=== PATIENT | male | born 1950 | race Caucasian/White ===

== ENCOUNTER 2022-12-03 06:23 | Outpatient (REF) | payer SELFPAY ==
[2022-12-03 07:05] LABS: INTERNATIONAL NORM RATIO 2.2 (0.9-1.1); Prothrombin Time 26.6 SEC (10.0-13.1)
== END 2022-12-03 06:24 | disposition home or self-care (01) ==
LOC: HO.MMNH1L 06:23
PROVIDERS: Visit Provider Family Medicine
DX: N18.6 End stage renal disease (principal); E11.9 Type 2 diabetes mellitus without complications
CPT/HCPCS: 36415; 85610

== ENCOUNTER 2023-01-21 06:07 | Outpatient (REF) | payer MEDICARE, SELFPAY | END 2023-01-21 06:08 | disposition home or self-care (01) | LOC: HO.MMNH1L 06:07 | PROVIDERS: Visit Provider Family Medicine | DX: Z13.89 Encounter for screening for other disorder (principal) ==

== ENCOUNTER 2023-02-25 06:18 | Outpatient (REF) | payer MEDICARE, MEDICAID, SELFPAY ==
[2023-02-25 06:25] LABS: MANUAL DIFF FLAG NO
[2023-02-25 06:32] LABS: Basophils Percent Auto 0.5 % (0-2); Eosinophils Absolute Auto 0.2 X10*3/uL (0.0-0.4); Eosinophils Percent Auto 2.1 % (0-4); Hematocrit 29.9 % (42.0-52.0); Hemoglobin 9.2 g/dl (14.0-18.0); Imm Gran Abs Auto 0.04 X10*3/uL (0.00-0.03); Imm Gran Pct Auto 0.5 % (0.0-0.4); Lymphocytes Absolute Auto 0.6 X10*3/uL (1.2-4.9); Lymphocytes Percent Auto 8.4 % (20-40); Mean Corpuscular HGB Conc 30.8 g/dl (31.0-36.0); Mean Corpuscular Hemoglobin 28.8 pg (27.0-33.0); Mean Corpuscular Volume 93.7 fL (80.0-98.0); Mean Platelet Volume 9.7 fL (9.4-12.4); Monocytes Absolute Auto 0.5 X10*3/uL (0.1-1.2); Monocytes Percent Auto 6.6 % (2-11); Neutrophils Absolute Auto 6.2 x10*3/uL (2.0-8.3); Neutrophils Percent Auto 81.9 % (45-73); Platelet Count 242 X10*3/uL (160-400); Red Blood Count 3.19 X10*6/uL (4.60-5.80); Red Cell Distribution Width 15.9 % (11.0-16.0); White Blood Count 7.5 X10*3/uL (4.8-10.8)
[2023-02-25 07:41] LABS: Anion Gap 20 (12-20); Blood Urea Nitrogen 35 mg/dL (9-16); Calcium 9.5 mg/dL (8.4-10.2); Carbon Dioxide 26 mmol/L (22-29); Chloride 93 mmol/L (96-108); Estimated Glomerular Filt Rate 9; Glucose Random 156 mg/dL (60-115); Potassium 4.5 mmol/L (3.3-5.1); Sodium 134 mmol/L (135-145)
== END 2023-02-25 06:19 | disposition home or self-care (01) ==
LOC: HO.MMNH1L 06:18
PROVIDERS: Visit Provider Family Medicine
DX: N18.6 End stage renal disease (principal); Z99.2 Dependence on renal dialysis
CPT/HCPCS: 36415; 80048; 85025

== ENCOUNTER 2023-04-08 06:03 | Outpatient (REF) | payer MEDICARE, MEDICAID, SELFPAY ==
[2023-04-08 06:05] LABS: MANUAL DIFF FLAG NO
[2023-04-08 06:47] LABS: Basophils Absolute Auto 0.1 X10*3/uL (0.0-0.2); Basophils Percent Auto 0.6 % (0-2); Eosinophils Absolute Auto 0.2 X10*3/uL (0.0-0.4); Eosinophils Percent Auto 2.7 % (0-4); Hematocrit 31.2 % (42.0-52.0); Hemoglobin 9.5 g/dl (14.0-18.0); Imm Gran Abs Auto 0.07 X10*3/uL (0.00-0.03); Imm Gran Pct Auto 0.9 % (0.0-0.4); Lymphocytes Absolute Auto 0.8 X10*3/uL (1.2-4.9); Lymphocytes Percent Auto 9.8 % (20-40); Mean Corpuscular HGB Conc 30.4 g/dl (31.0-36.0); Mean Corpuscular Hemoglobin 27.9 pg (27.0-33.0); Mean Corpuscular Volume 91.5 fL (80.0-98.0); Mean Platelet Volume 9.9 fL (9.4-12.4); Monocytes Absolute Auto 0.5 X10*3/uL (0.1-1.2); Monocytes Percent Auto 5.5 % (2-11); Neutrophils Absolute Auto 6.6 x10*3/uL (2.0-8.3); Neutrophils Percent Auto 80.5 % (45-73); Platelet Count 339 X10*3/uL (160-400); Red Blood Count 3.41 X10*6/uL (4.60-5.80); Red Cell Distribution Width 17.6 % (11.0-16.0); White Blood Count 8.1 X10*3/uL (4.8-10.8)
[2023-04-08 07:01] LABS: Alanine Aminotransferase 14 U/L (0-40); Albumin Level 2.5 g/dL (3.5-5.0); Alkaline Phosphatase 122 U/L (39-117); Anion Gap 22 (12-20); Aspartate Amino Transferase 25 U/L (5-37); Blood Urea Nitrogen 28 mg/dL (9-16); Calcium 9.2 mg/dL (8.4-10.2); Carbon Dioxide 24 mmol/L (22-29); Chloride 92 mmol/L (96-108); Glucose Random 223 mg/dL (60-115); Potassium 4.5 mmol/L (3.3-5.1); Sodium 133 mmol/L (135-145); Total Protein 5.4 g/dL (6.5-8.0)
[2023-04-08 07:35] LABS: Bilirubin Total 0.6 mg/dL (0.0-1.0)
[2023-04-08 07:42] LABS: Estimated Glomerular Filt Rate 10
== END 2023-04-08 06:04 | disposition home or self-care (01) ==
LOC: HO.MMNH3L 06:03
PROVIDERS: Visit Provider Family Medicine
DX: I10 Essential (primary) hypertension (principal)
CPT/HCPCS: 36415; 80053; 85025

== ENCOUNTER 2023-04-11 05:47 | Outpatient (REF) | payer MEDICARE, MEDICAID, SELFPAY ==
[2023-04-11 06:32] LABS: Basophils Percent Auto 0.3 % (0-2); Eosinophils Absolute Auto 0.1 X10*3/uL (0.0-0.4); Eosinophils Percent Auto 1.1 % (0-4); Hematocrit 33.4 % (42.0-52.0); Hemoglobin 10.2 g/dl (14.0-18.0); Lymphocytes Absolute Auto 0.8 X10*3/uL (1.2-4.9); MANUAL DIFF FLAG NO; Mean Corpuscular HGB Conc 30.5 g/dl (31.0-36.0); Mean Corpuscular Volume 91.8 fL (80.0-98.0); Mean Platelet Volume 9.4 fL (9.4-12.4); Monocytes Absolute Auto 0.6 X10*3/uL (0.1-1.2); Monocytes Percent Auto 5.9 % (2-11); Neutrophils Absolute Auto 8.6 x10*3/uL (2.0-8.3); Neutrophils Percent Auto 83.7 % (45-73); Platelet Count 293 X10*3/uL (160-400); Red Blood Count 3.64 X10*6/uL (4.60-5.80); Red Cell Distribution Width 18.2 % (11.0-16.0); White Blood Count 10.3 X10*3/uL (4.8-10.8)
[2023-04-11 07:02] LABS: Anion Gap 23 (12-20); Blood Urea Nitrogen 12 mg/dL (9-16); Calcium 9.3 mg/dL (8.4-10.2); Carbon Dioxide 25 mmol/L (22-29); Chloride 91 mmol/L (96-108); Estimated Glomerular Filt Rate 18; Glucose Random 278 mg/dL (60-115); Potassium 3.6 mmol/L (3.3-5.1); Sodium 135 mmol/L (135-145)
== END 2023-04-11 05:48 | disposition home or self-care (01) ==
LOC: HO.MMNH3L 05:47
PROVIDERS: Visit Provider Family Medicine
DX: I10 Essential (primary) hypertension (principal); R41.82 Altered mental status, unspecified
CPT/HCPCS: 36415; 80048; 85025

== ENCOUNTER 2023-04-12 05:32 | Outpatient (REF) | payer MEDICARE, MEDICAID, SELFPAY ==
[2023-04-12 05:34] LABS: MANUAL DIFF FLAG NO
[2023-04-12 05:51] LABS: Basophils Absolute Auto 0.1 X10*3/uL (0.0-0.2); Basophils Percent Auto 0.7 % (0-2); Eosinophils Absolute Auto 0.3 X10*3/uL (0.0-0.4); Eosinophils Percent Auto 2.3 % (0-4); Hematocrit 33.4 % (42.0-52.0); Hemoglobin 10.3 g/dl (14.0-18.0); Imm Gran Abs Auto 0.09 X10*3/uL (0.00-0.03); Imm Gran Pct Auto 0.8 % (0.0-0.4); Lymphocytes Absolute Auto 1.3 X10*3/uL (1.2-4.9); Lymphocytes Percent Auto 11.8 % (20-40); Mean Corpuscular HGB Conc 30.8 g/dl (31.0-36.0); Mean Corpuscular Hemoglobin 28.1 pg (27.0-33.0); Mean Corpuscular Volume 91.3 fL (80.0-98.0); Mean Platelet Volume 9.5 fL (9.4-12.4); Monocytes Absolute Auto 0.9 X10*3/uL (0.1-1.2); Monocytes Percent Auto 8.2 % (2-11); Neutrophils Absolute Auto 8.3 x10*3/uL (2.0-8.3); Neutrophils Percent Auto 76.2 % (45-73); Platelet Count 278 X10*3/uL (160-400); Red Blood Count 3.66 X10*6/uL (4.60-5.80); Red Cell Distribution Width 18.1 % (11.0-16.0); White Blood Count 10.9 X10*3/uL (4.8-10.8)
== END 2023-04-12 05:33 | disposition home or self-care (01) ==
LOC: HO.MMNH3L 05:32
PROVIDERS: Visit Provider Family Medicine
DX: M54.50 Low back pain, unspecified (principal)
CPT/HCPCS: 36415; 85025

== ENCOUNTER 2023-04-19 20:20 | Outpatient (REF) | payer MEDICARE, SELFPAY | END 2023-04-19 20:21 | disposition home or self-care (01) | LOC: HO.MMNH3L 20:20 | PROVIDERS: Visit Provider Family Medicine | DX: R50.9 Fever, unspecified (principal) | CPT/HCPCS: 87070 ==

== ENCOUNTER 2023-04-22 06:11 | Outpatient (REF) | payer MEDICARE, MEDICAID, SELFPAY ==
[2023-04-22 06:03] LABS: MANUAL DIFF FLAG NO
[2023-04-22 07:02] LABS: Basophils Absolute Auto 0.1 X10*3/uL (0.0-0.2); Basophils Percent Auto 0.7 % (0-2); Eosinophils Absolute Auto 0.1 X10*3/uL (0.0-0.4); Hematocrit 34.9 % (42.0-52.0); Hemoglobin 10.4 g/dl (14.0-18.0); Imm Gran Abs Auto 0.04 X10*3/uL (0.00-0.03); Imm Gran Pct Auto 0.5 % (0.0-0.4); Lymphocytes Absolute Auto 0.9 X10*3/uL (1.2-4.9); Lymphocytes Percent Auto 10.9 % (20-40); Mean Corpuscular HGB Conc 29.8 g/dl (31.0-36.0); Mean Corpuscular Hemoglobin 29.1 pg (27.0-33.0); Mean Corpuscular Volume 97.8 fL (80.0-98.0); Mean Platelet Volume 10.5 fL (9.4-12.4); Monocytes Absolute Auto 0.6 X10*3/uL (0.1-1.2); Monocytes Percent Auto 6.8 % (2-11); Neutrophils Absolute Auto 6.7 x10*3/uL (2.0-8.3); Neutrophils Percent Auto 80.1 % (45-73); Platelet Count 179 X10*3/uL (160-400); Red Blood Count 3.57 X10*6/uL (4.60-5.80); Red Cell Distribution Width 19.1 % (11.0-16.0); White Blood Count 8.4 X10*3/uL (4.8-10.8)
[2023-04-22 09:52] LABS: Anion Gap 20 (12-20); Blood Urea Nitrogen 36 mg/dL (9-16); Calcium 9.2 mg/dL (8.4-10.2); Carbon Dioxide 23 mmol/L (22-29); Chloride 99 mmol/L (96-108); Estimated Glomerular Filt Rate 10; Glucose Random 200 mg/dL (60-115); Potassium 5.2 mmol/L (3.3-5.1); Sodium 137 mmol/L (135-145)
== END 2023-04-22 06:12 | disposition home or self-care (01) ==
LOC: HO.MMNH3L 06:11
PROVIDERS: Visit Provider Family Medicine
DX: I10 Essential (primary) hypertension (principal)
CPT/HCPCS: 36415; 80048; 85025

== ENCOUNTER 2023-04-29 06:08 | Outpatient (REF) | payer MEDICARE, MEDICAID, SELFPAY ==
[2023-04-29 05:53] LABS: MANUAL DIFF FLAG NO
[2023-04-29 07:04] LABS: Basophils Percent Auto 0.5 % (0-2); Eosinophils Absolute Auto 0.1 X10*3/uL (0.0-0.4); Eosinophils Percent Auto 1.1 % (0-4); Hematocrit 34.2 % (42.0-52.0); Hemoglobin 10.5 g/dl (14.0-18.0); Imm Gran Abs Auto 0.05 X10*3/uL (0.00-0.03); Imm Gran Pct Auto 0.6 % (0.0-0.4); Lymphocytes Absolute Auto 0.9 X10*3/uL (1.2-4.9); Lymphocytes Percent Auto 11.1 % (20-40); Mean Corpuscular HGB Conc 30.7 g/dl (31.0-36.0); Mean Corpuscular Hemoglobin 28.2 pg (27.0-33.0); Mean Corpuscular Volume 91.7 fL (80.0-98.0); Mean Platelet Volume 9.9 fL (9.4-12.4); Monocytes Absolute Auto 0.6 X10*3/uL (0.1-1.2); Monocytes Percent Auto 7.7 % (2-11); Neutrophils Absolute Auto 6.4 x10*3/uL (2.0-8.3); Platelet Count 237 X10*3/uL (160-400); Red Blood Count 3.73 X10*6/uL (4.60-5.80); Red Cell Distribution Width 18.2 % (11.0-16.0); White Blood Count 8.1 X10*3/uL (4.8-10.8)
[2023-04-29 08:37] LABS: Anion Gap 27 (12-20); Blood Urea Nitrogen 96 mg/dL (9-16); Calcium 8.7 mg/dL (8.4-10.2); Carbon Dioxide 21 mmol/L (22-29); Chloride 93 mmol/L (96-108); Estimated Glomerular Filt Rate 7; Glucose Random 130 mg/dL (60-115); Potassium 5.9 mmol/L (3.3-5.1); Sodium 135 mmol/L (135-145)
== END 2023-04-29 06:09 | disposition home or self-care (01) ==
LOC: HO.MMNH3L 06:08
PROVIDERS: Visit Provider Family Medicine
DX: I10 Essential (primary) hypertension (principal)
CPT/HCPCS: 36415; 80048; 85025

== ENCOUNTER 2023-09-10 06:16 | Outpatient (REF) | payer MEDICARE, MEDICAID, SELFPAY ==
[2023-09-10 06:18] LABS: MANUAL DIFF FLAG NO
[2023-09-10 06:44] LABS: Basophils Absolute Auto 0.1 X10*3/uL (0.0-0.2); Basophils Percent Auto 0.6 % (0-2); Eosinophils Absolute Auto 0.2 X10*3/uL (0.0-0.4); Eosinophils Percent Auto 2.4 % (0-4); Hematocrit 33.4 % (42.0-52.0); Imm Gran Abs Auto 0.05 X10*3/uL (0.00-0.03); Imm Gran Pct Auto 0.6 % (0.0-0.4); Lymphocytes Percent Auto 10.9 % (20-40); Mean Corpuscular HGB Conc 32.9 g/dl (31.0-36.0); Mean Corpuscular Hemoglobin 30.9 pg (27.0-33.0); Mean Corpuscular Volume 93.8 fL (80.0-98.0); Mean Platelet Volume 9.9 fL (9.4-12.4); Monocytes Absolute Auto 0.5 X10*3/uL (0.1-1.2); Monocytes Percent Auto 5.5 % (2-11); Neutrophils Absolute Auto 7.1 x10*3/uL (2.0-8.3); Platelet Count 187 X10*3/uL (160-400); Red Blood Count 3.56 X10*6/uL (4.60-5.80); Red Cell Distribution Width 14.7 % (11.0-16.0); White Blood Count 8.9 X10*3/uL (4.8-10.8)
== END 2023-09-10 06:17 | disposition home or self-care (01) ==
LOC: HO.MMNH3L 06:16
PROVIDERS: Visit Provider Family Medicine
DX: I10 Essential (primary) hypertension (principal); I48.91 Unspecified atrial fibrillation; I25.10 Atherosclerotic heart disease of native coronary artery without angina pectoris
CPT/HCPCS: 36415; 85025

== ENCOUNTER 2023-09-16 06:32 | Outpatient (REF) | payer MEDICARE, MEDICAID, SELFPAY | END 2023-09-16 06:33 | disposition home or self-care (01) | LOC: HO.MMNH3L 06:32 | PROVIDERS: Visit Provider Family Medicine | DX: M10.49 Other secondary gout, multiple sites (principal) | CPT/HCPCS: 36415; 84550 ==

== ENCOUNTER 2023-09-18 15:15 | Outpatient (REF) | payer MEDICARE, MEDICAID, SELFPAY ==
[2023-09-18 16:28] LABS: Influenza A PCR NEGATIVE (Negative); Influenza B PCR NEGATIVE (Negative); Resp Syncy Virus RNA Qual PCR NEGATIVE (Negative); SARS COV2 PCR INHOUSE NEGATIVE (Negative)
== END 2023-09-18 15:16 | disposition home or self-care (01) ==
LOC: HO.MMNH3L 15:15
PROVIDERS: Visit Provider Family Medicine
DX: Z11.52 Encounter for screening for COVID-19 (principal); Z20.828 Contact with and (suspected) exposure to other viral communicable diseases
CPT/HCPCS: 0241U

== ENCOUNTER 2023-09-20 05:46 | Outpatient (REF) | payer MEDICARE, MEDICAID, SELFPAY ==
[2023-09-20 05:49] LABS: MANUAL DIFF FLAG NO
[2023-09-20 06:07] LABS: Basophils Percent Auto 0.4 % (0-2); Eosinophils Absolute Auto 0.1 X10*3/uL (0.0-0.4); Eosinophils Percent Auto 2.1 % (0-4); Hematocrit 34.1 % (42.0-52.0); Hemoglobin 11.2 g/dl (14.0-18.0); Imm Gran Abs Auto 0.03 X10*3/uL (0.00-0.03); Imm Gran Pct Auto 0.4 % (0.0-0.4); Lymphocytes Absolute Auto 0.9 X10*3/uL (1.2-4.9); Lymphocytes Percent Auto 13.1 % (20-40); Mean Corpuscular HGB Conc 32.8 g/dl (31.0-36.0); Mean Corpuscular Volume 94.5 fL (80.0-98.0); Mean Platelet Volume 9.5 fL (9.4-12.4); Monocytes Absolute Auto 0.5 X10*3/uL (0.1-1.2); Monocytes Percent Auto 7.4 % (2-11); Neutrophils Absolute Auto 5.2 x10*3/uL (2.0-8.3); Neutrophils Percent Auto 76.6 % (45-73); Platelet Count 181 X10*3/uL (160-400); Red Blood Count 3.61 X10*6/uL (4.60-5.80); Red Cell Distribution Width 14.2 % (11.0-16.0); White Blood Count 6.7 X10*3/uL (4.8-10.8)
[2023-09-20 06:38] LABS: Alanine Aminotransferase 8 U/L (0-40); Albumin Level 2.7 g/dL (3.5-5.0); Alkaline Phosphatase 96 U/L (39-117); Anion Gap 13 (12-20); Aspartate Amino Transferase 14 U/L (5-37); Bilirubin Total 0.6 mg/dL (0.0-1.0); Blood Urea Nitrogen 26 mg/dL (9-16); Carbon Dioxide 34 mmol/L (22-29); Chloride 94 mmol/L (96-108); Estimated Glomerular Filt Rate 14; Glucose Random 272 mg/dL (60-115); Potassium 4.1 mmol/L (3.3-5.1); Sodium 137 mmol/L (135-145); Total Protein 5.7 g/dL (6.5-8.0)
== END 2023-09-20 05:47 | disposition home or self-care (01) ==
LOC: HO.MMNH3L 05:46
PROVIDERS: Visit Provider Family Medicine
DX: N18.9 Chronic kidney disease, unspecified (principal); J44.9 Chronic obstructive pulmonary disease, unspecified; E11.21 Type 2 diabetes mellitus with diabetic nephropathy
CPT/HCPCS: 36415; 80053; 85025

== ENCOUNTER 2023-10-03 05:58 | Outpatient (REF) | payer MEDICARE, MEDICAID, SELFPAY ==
[2023-10-03 06:01] LABS: MANUAL DIFF FLAG NO
[2023-10-03 06:28] LABS: Basophils Percent Auto 0.7 % (0-2); Eosinophils Absolute Auto 0.1 X10*3/uL (0.0-0.4); Hematocrit 31.6 % (42.0-52.0); Hemoglobin 10.3 g/dl (14.0-18.0); Imm Gran Abs Auto 0.06 X10*3/uL (0.00-0.03); Lymphocytes Absolute Auto 0.9 X10*3/uL (1.2-4.9); Lymphocytes Percent Auto 15.2 % (20-40); Mean Corpuscular HGB Conc 32.6 g/dl (31.0-36.0); Mean Corpuscular Hemoglobin 30.8 pg (27.0-33.0); Mean Corpuscular Volume 94.6 fL (80.0-98.0); Mean Platelet Volume 9.4 fL (9.4-12.4); Monocytes Absolute Auto 0.5 X10*3/uL (0.1-1.2); Monocytes Percent Auto 8.2 % (2-11); Neutrophils Absolute Auto 4.5 x10*3/uL (2.0-8.3); Neutrophils Percent Auto 72.9 % (45-73); Platelet Count 222 X10*3/uL (160-400); Red Blood Count 3.34 X10*6/uL (4.60-5.80); Red Cell Distribution Width 13.7 % (11.0-16.0); White Blood Count 6.1 X10*3/uL (4.8-10.8)
[2023-10-03 06:42] LABS: Anion Gap 13 (12-20); Blood Urea Nitrogen 20 mg/dL (9-16); Calcium 8.7 mg/dL (8.4-10.2); Carbon Dioxide 33 mmol/L (22-29); Chloride 93 mmol/L (96-108); Estimated Glomerular Filt Rate 19; Glucose Random 142 mg/dL (60-115); Sodium 136 mmol/L (135-145)
== END 2023-10-03 05:59 | disposition home or self-care (01) ==
LOC: HO.MMNH3L 05:58
PROVIDERS: Visit Provider Family Medicine
DX: E11.21 Type 2 diabetes mellitus with diabetic nephropathy (principal); E11.22 Type 2 diabetes mellitus with diabetic chronic kidney disease; I48.91 Unspecified atrial fibrillation; N18.6 End stage renal disease
CPT/HCPCS: 36415; 80048; 85025

== ENCOUNTER 2023-10-08 14:27 | Emergency (ER) | payer MEDICARE, MEDICAID, SELFPAY ==
[2023-10-08 14:54] VITALS: BP 122/68; BP 156/72; PULSE 60; PULSE 65; RESP 18; TEMP 37.1; O2SAT 95; O2SAT 97; BMI 38.0
[2023-10-08 15:05] VITALS: O2SAT 95
--- NOTE | 2023-10-08 16:17 | ED_ITS ---
HPI - Skin/Abscess/Foreign Bdy General Chief complaint: Skin/Abscess/Foreign Body Stated complaint: RASH ARMS FROM SNF PER EMS Time Seen by Provider: 10/08/23 16:06 Source: patient Mode of arrival: EMS Limitations: no limitations History of Present Illness HPI narrative: Patient comes to the emergency room via ambulance from [facility]. For last 3 days, patient has had a rash in both arms. Patient states that he has no fever or chills, no pain, not itching. Patient denies any new medications, no trauma. Patient takes aspirin and Eliquis Related Data Allergies Allergy/AdvReac Type Severity Reaction Status Date / Time iodine Allergy Unknown Verified 10/08/23 15:21 Penicillins [PCN] Allergy Unknown Verified 10/08/23 15:04 red dye Allergy Unknown Verified 10/08/23 15:21 Review of Systems 2 Review of Systems: Constitutional : No Weight loss, No Fever, No Chills, No Night Sweats, No Fatigue, No Malaise ENT/Mouth : No Hearing loss, No Ear Pain, No Nasal Congestion, No Sinus Pain, No Hoarseness, No sore throat, No Rhinorrhea, No Swallowing Difficulty Eyes: No Eye Pain, No Swelling, No Redness, No Foreign Body, No Discharge, No Vision Changes Cardiovascular : No Chest Pain, No SOB, No Dyspnea on Exertion, No Orthopnea, No Edema, No Palpitations Respiratory : No Cough, No Sputum, No Wheezing, No Smoke Exposure, No Dyspnea Gastrointestinal : No Nausea, No Vomiting, No Diarrhea, No Constipation, No abdominal Pain, No Hematochezia, No Melena Genitourinary : no irregular bleeding, No Dysuria, No Urinary Frequency, No Hematuria, No Urinary Incontinence, No Urgency, No Flank Pain, No Urinary Flow Changes, No Hesitancy Musculoskeletal : No joint pain, No Myalgias, No Joint Swelling Skin : Complaining of a new rash in upper extremities: No Skin Lesions, No rash Neuro : No Weakness, No Numbness, No Paresthesias, No Loss of Consciousness, No Dizziness, No Headache Psych : No Anxiety/Panic, No Depression, No SI/HI/AH/VH, No Social Issues, Heme/Lymph: No Bruising, No Bleeding,No Lymphadenopathy Endocrine : No Polyuria, No Polydipsia, No Temperature Intolerance [facility] Past Medical History Medical History (Updated 10/08/23 @ 19:16 by Mally Mancini MD) Major depression Anxiety Hyperlipidemia Hypertension COPD (chronic obstructive pulmonary disease) End stage renal disease on dialysis Social History Social History Smoked in Last 30 Days: No Use of substances other than those prescribed or required for medical reasons: No Advance Directives: No Advance Directives Information Provided: No Physical Exam 2 Vital Signs: Vital Signs: Last Vital Signs Temp 98.7 F 10/08/23 14:54 Pulse 72 10/08/23 19:12 Resp 18 10/08/23 19:12 BP 156/72 H 10/08/23 14:54 Pulse Ox 95 10/08/23 15:05 O2 Del Method Room Air 10/08/23 15:05 BMI result Body Mass Index 38.0 Const: Other: Appearance: Alert. Oriented X3. No acute distress. Eyes: Pupils equal, round and reactive to light. ENT: Pharynx normal. Neck: Normal inspection. Neck supple. No lymph nodes noted. No crepitus CVS: Normal heart rate and rhythm. Pulses normal. Normal S1 and S2 Respiratory: No respiratory distress. Breath sounds normal. No Wheezing. No rales Abdomen: Soft and nontender. No rigidity. No distention. Skin: Skin warm and dry. Normal skin color. In bilateral upper arms, patient has a vascular/petechial rash, non blanchable Extremities: No lower extremity edema. No Lacerations. Vascular/petechial rash in both upper extremities not in lower extremities Neuro: Oriented X 3. No motor deficit. No sensory deficit. Moving all extremities. No slurred speech. CN 2 through 12 grossly intact Psych: calm, cooperative, normal affect Course Course Course Narrative: -all of patient's labs pending Medical Decision Making Medical Decision Making [facility] Narrative: My interpretation of labs: Hematology at baseline, platelets within normal limits PT PTT INR at baseline -patient likely has a vascular rash secondary to blood thinners. At this time, patient is asymptomatic, patient instructed to follow-up with his primary care physician. Differential Diagnosis Differential Diagnoses: The differential diagnosis associated with the presentation includes (Petechial rash, vascular rash) Lab Data [facility] Lab Attestation statement: I reviewed the patient's lab results. 10/08/23 16:43 10/08/23 16:43 Labs: Lab Results 10/08/23 Range/Units 16:43 WBC 6.7 (4.8-10.8) X10*3/uL RBC 3.31 L (4.60-5.80) X10*6/uL Hgb 10.1 L (14.0-18.0) g/dl Hct 31.3 L (42.0-52.0) % MCV 94.6 (80.0-98.0) fL MCH 30.5 (27.0-33.0) pg MCHC 32.3 (31.0-36.0) g/dl RDW 13.6 (11.0-16.0) % Plt Count 205 (160-400) X10*3/uL MPV 9.4 (9.4-12.4) fL Immature Gran % (Auto) 0.4 (0.0-0.4) % Neut % (Auto) 80.4 H (45-73) % Lymph % (Auto) 9.1 L (20-40) % Carlton % (Auto) 7.0 (2-11) % Eos % (Auto) 2.7 (0-4) % Baso % (Auto) 0.4 (0-2) % Lymph # (Auto) 0.6 L (1.2-4.9) X10*3/uL Carlton # (Auto) 0.5 (0.1-1.2) X10*3/uL Eos # (Auto) 0.2 (0.0-0.4) X10*3/uL Baso # (Auto) 0.0 (0.0-0.2) X10*3/uL Abs Immat Gran (auto) 0.03 (0.00-0.03) X10*3/uL Absolute Neuts (auto) 5.4 (2.0-8.3) x10*3/uL Absolute Nucleated RBC 0.000 (0.0-0.012) X10*3/uL Nucleated RBC % (auto) 0.0 (0.0-0.2) /100WBC PT 20.5 H (11.1-13.3) SEC INR 1.7 H (0.9-1.1) APTT 32.9 (26.0-36.8) SEC Sodium 135 (135-145) mmol/L Potassium 3.4 (3.3-5.1) mmol/L Chloride 94 L (96-108) mmol/L Carbon Dioxide 32 H (22-29) mmol/L Anion Gap 12 (12-20) BUN 25 H (9-16) mg/dL Creatinine 4.39 H* (0.5-1.4) mg/dL Estim Creat Clear Calc 18.8 Estimated GFR 13 Random Glucose 285 H (60-115) mg/dL Calcium 8.6 (8.4-10.2) mg/dL Total Bilirubin 0.7 (0.0-1.0) mg/dL Direct Bilirubin 0.3 (0.0-0.5) mg/dL AST 11 (5-37) U/L ALT 8 (0-40) U/L Alkaline Phosphatase 104 (39-117) U/L Total Protein 5.7 L (6.5-8.0) g/dL Albumin 2.7 L (3.5-5.0) g/dL Discharge Plan Discharge Clinical Impression: Petechial rash Patient Disposition: Home, Self-Care Instructions: Ecchymosis (ED) Additional Instructions: Please follow-up with your primary care physician tomorrow. If you have any worsening or new symptoms, please return to the emergency room or call 911
[2023-10-08 16:48] LABS: MANUAL DIFF FLAG NO
[2023-10-08 16:52] LABS: Basophils Percent Auto 0.4 % (0-2); Eosinophils Absolute Auto 0.2 X10*3/uL (0.0-0.4); Eosinophils Percent Auto 2.7 % (0-4); Hematocrit 31.3 % (42.0-52.0); Hemoglobin 10.1 g/dl (14.0-18.0); Imm Gran Abs Auto 0.03 X10*3/uL (0.00-0.03); Imm Gran Pct Auto 0.4 % (0.0-0.4); Lymphocytes Absolute Auto 0.6 X10*3/uL (1.2-4.9); Lymphocytes Percent Auto 9.1 % (20-40); Mean Corpuscular HGB Conc 32.3 g/dl (31.0-36.0); Mean Corpuscular Hemoglobin 30.5 pg (27.0-33.0); Mean Corpuscular Volume 94.6 fL (80.0-98.0); Mean Platelet Volume 9.4 fL (9.4-12.4); Monocytes Absolute Auto 0.5 X10*3/uL (0.1-1.2); Neutrophils Absolute Auto 5.4 x10*3/uL (2.0-8.3); Neutrophils Percent Auto 80.4 % (45-73); Platelet Count 205 X10*3/uL (160-400); Red Blood Count 3.31 X10*6/uL (4.60-5.80); Red Cell Distribution Width 13.6 % (11.0-16.0); White Blood Count 6.7 X10*3/uL (4.8-10.8)
[2023-10-08 16:56] LABS: INTERNATIONAL NORM RATIO 1.7 (0.9-1.1); Prothrombin Time 20.5 SEC (11.1-13.3)
[2023-10-08 16:59] LABS: Partial Thromboplastin Time 32.9 SEC (26.0-36.8)
[2023-10-08 17:10] LABS: Alanine Aminotransferase 8 U/L (0-40); Albumin Level 2.7 g/dL (3.5-5.0); Alkaline Phosphatase 104 U/L (39-117); Anion Gap 12 (12-20); Aspartate Amino Transferase 11 U/L (5-37); Bilirubin Direct 0.3 mg/dL (0.0-0.5); Bilirubin Total 0.7 mg/dL (0.0-1.0); Blood Urea Nitrogen 25 mg/dL (9-16); Calcium 8.6 mg/dL (8.4-10.2); Carbon Dioxide 32 mmol/L (22-29); Chloride 94 mmol/L (96-108); Creatinine Clr Calc Pharmacy 18.8; Estimated Glomerular Filt Rate 13; Glucose Random 285 mg/dL (60-115); Potassium 3.4 mmol/L (3.3-5.1); Sodium 135 mmol/L (135-145); Total Protein 5.7 g/dL (6.5-8.0)
[2023-10-08 19:12] VITALS: PULSE 72; RESP 18
--- NOTE | 2023-10-08 19:14 | PC.NURSE ---
Assumed care of pt. Pt lying on stretcher, obvious rash on BUE and chest. Pt denies pain/itchiness at this time, no acute distress. per provider, plan to DC back to facility.
--- NOTE | 2023-10-08 20:19 | PC.NURSE ---
This RN attempted to reach an RN at [facility] without success. Ambulance to arrive for return transport at [id number], will attempt to contact facility on departure.
[2023-10-08 22:00] VITALS: PULSE 80; RESP 18; O2SAT 95
== END 2023-10-08 22:15 | disposition home or self-care (01) ==
PROVIDERS: Emergency Provider Emergency Medicine
DX: R23.3 Spontaneous ecchymoses (principal); R21 Rash and other nonspecific skin eruption; Z79.899 Other long term (current) drug therapy; Z79.01 Long term (current) use of anticoagulants
CPT/HCPCS: 36415; 80048; 80076; 85025; 85610; 85730; 99283; 99284

== ENCOUNTER 2023-10-09 12:18 | Outpatient (REF) | payer MEDICARE, MEDICAID, SELFPAY ==
[2023-10-09 12:39] LABS: Basophils Percent Auto 0.6 % (0-2); Eosinophils Absolute Auto 0.2 X10*3/uL (0.0-0.4); Eosinophils Percent Auto 2.5 % (0-4); Hemoglobin 10.4 g/dl (14.0-18.0); Imm Gran Abs Auto 0.02 X10*3/uL (0.00-0.03); Imm Gran Pct Auto 0.3 % (0.0-0.4); Lymphocytes Absolute Auto 0.8 X10*3/uL (1.2-4.9); Lymphocytes Percent Auto 11.8 % (20-40); MANUAL DIFF FLAG NO; Mean Corpuscular HGB Conc 32.5 g/dl (31.0-36.0); Mean Corpuscular Hemoglobin 30.9 pg (27.0-33.0); Mean Platelet Volume 10.2 fL (9.4-12.4); Monocytes Absolute Auto 0.5 X10*3/uL (0.1-1.2); Monocytes Percent Auto 7.6 % (2-11); Neutrophils Absolute Auto 5.3 x10*3/uL (2.0-8.3); Neutrophils Percent Auto 77.2 % (45-73); Platelet Count 191 X10*3/uL (160-400); Red Blood Count 3.37 X10*6/uL (4.60-5.80); Red Cell Distribution Width 13.5 % (11.0-16.0); White Blood Count 6.9 X10*3/uL (4.8-10.8)
== END 2023-10-09 12:19 | disposition home or self-care (01) ==
LOC: HO.MMNH3L 12:18
PROVIDERS: Visit Provider Family Medicine
DX: N18.6 End stage renal disease (principal)
CPT/HCPCS: 36415; 85025

== ENCOUNTER 2023-10-11 06:05 | Outpatient (REF) | payer MEDICARE, MEDICAID, SELFPAY ==
[2023-10-11 06:07] LABS: MANUAL DIFF FLAG NO
[2023-10-11 07:12] LABS: Basophils Percent Auto 0.7 % (0-2); Eosinophils Absolute Auto 0.2 X10*3/uL (0.0-0.4); Eosinophils Percent Auto 3.2 % (0-4); Hemoglobin 9.7 g/dl (14.0-18.0); Imm Gran Abs Auto 0.02 X10*3/uL (0.00-0.03); Imm Gran Pct Auto 0.4 % (0.0-0.4); Lymphocytes Absolute Auto 0.9 X10*3/uL (1.2-4.9); Lymphocytes Percent Auto 16.4 % (20-40); Mean Corpuscular HGB Conc 33.4 g/dl (31.0-36.0); Mean Corpuscular Hemoglobin 31.3 pg (27.0-33.0); Mean Corpuscular Volume 93.5 fL (80.0-98.0); Monocytes Absolute Auto 0.4 X10*3/uL (0.1-1.2); Monocytes Percent Auto 7.2 % (2-11); Neutrophils Percent Auto 72.1 % (45-73); Platelet Count 187 X10*3/uL (160-400); Red Cell Distribution Width 13.4 % (11.0-16.0); White Blood Count 5.5 X10*3/uL (4.8-10.8)
== END 2023-10-11 06:06 | disposition home or self-care (01) ==
LOC: HO.MMNH3L 06:05
PROVIDERS: Visit Provider Family Medicine
DX: N18.6 End stage renal disease (principal)
CPT/HCPCS: 36415; 85025

== ENCOUNTER 2023-10-14 06:34 | Outpatient (REF) | payer MEDICARE, MEDICAID, SELFPAY ==
[2023-10-14 06:07] LABS: MANUAL DIFF FLAG NO
[2023-10-14 06:36] LABS: Basophils Absolute Auto 0.1 X10*3/uL (0.0-0.2); Basophils Percent Auto 0.8 % (0-2); Eosinophils Absolute Auto 0.1 X10*3/uL (0.0-0.4); Eosinophils Percent Auto 1.8 % (0-4); Hematocrit 28.6 % (42.0-52.0); Hemoglobin 9.4 g/dl (14.0-18.0); Imm Gran Abs Auto 0.02 X10*3/uL (0.00-0.03); Imm Gran Pct Auto 0.3 % (0.0-0.4); Lymphocytes Absolute Auto 0.9 X10*3/uL (1.2-4.9); Lymphocytes Percent Auto 13.4 % (20-40); Mean Corpuscular HGB Conc 32.9 g/dl (31.0-36.0); Mean Corpuscular Hemoglobin 30.5 pg (27.0-33.0); Mean Corpuscular Volume 92.9 fL (80.0-98.0); Mean Platelet Volume 9.8 fL (9.4-12.4); Monocytes Absolute Auto 0.4 X10*3/uL (0.1-1.2); Monocytes Percent Auto 6.3 % (2-11); Neutrophils Absolute Auto 5.2 x10*3/uL (2.0-8.3); Neutrophils Percent Auto 77.4 % (45-73); Platelet Count 197 X10*3/uL (160-400); Red Blood Count 3.08 X10*6/uL (4.60-5.80); Red Cell Distribution Width 13.5 % (11.0-16.0); White Blood Count 6.7 X10*3/uL (4.8-10.8)
[2023-10-14 07:03] LABS: Anion Gap 18 (12-20); Blood Urea Nitrogen 30 mg/dL (9-16); Calcium 8.5 mg/dL (8.4-10.2); Carbon Dioxide 28 mmol/L (22-29); Chloride 91 mmol/L (96-108); Estimated Glomerular Filt Rate 10; Glucose Random 249 mg/dL (60-115); Potassium 3.1 mmol/L (3.3-5.1); Sodium 134 mmol/L (135-145)
== END 2023-10-14 06:35 | disposition home or self-care (01) ==
LOC: HO.MMNH3L 06:34
PROVIDERS: Visit Provider Family Medicine
DX: N18.6 End stage renal disease (principal); E11.21 Type 2 diabetes mellitus with diabetic nephropathy; J44.9 Chronic obstructive pulmonary disease, unspecified
CPT/HCPCS: 36415; 80048; 85025

== ENCOUNTER 2023-11-11 06:18 | Outpatient (REF) | payer OTHER, MEDICARE, MEDICAID, SELFPAY ==
[2023-11-11 05:52] LABS: MANUAL DIFF FLAG NO
[2023-11-11 06:12] LABS: Basophils Percent Auto 0.3 % (0-2); Eosinophils Percent Auto 0.2 % (0-4); Hematocrit 32.4 % (42.0-52.0); Hemoglobin 10.8 g/dl (14.0-18.0); Imm Gran Abs Auto 0.06 X10*3/uL (0.00-0.03); Imm Gran Pct Auto 0.6 % (0.0-0.4); Lymphocytes Absolute Auto 0.8 X10*3/uL (1.2-4.9); Lymphocytes Percent Auto 7.5 % (20-40); Mean Corpuscular HGB Conc 33.3 g/dl (31.0-36.0); Mean Corpuscular Hemoglobin 30.8 pg (27.0-33.0); Mean Corpuscular Volume 92.3 fL (80.0-98.0); Mean Platelet Volume 9.4 fL (9.4-12.4); Monocytes Absolute Auto 0.6 X10*3/uL (0.1-1.2); Monocytes Percent Auto 6.3 % (2-11); Neutrophils Absolute Auto 8.5 x10*3/uL (2.0-8.3); Neutrophils Percent Auto 85.1 % (45-73); Platelet Count 195 X10*3/uL (160-400); Red Blood Count 3.51 X10*6/uL (4.60-5.80); Red Cell Distribution Width 14.7 % (11.0-16.0)
[2023-11-11 07:10] LABS: Anion Gap 27 (12-20); Blood Urea Nitrogen 96 mg/dL (9-16); Calcium 8.3 mg/dL (8.4-10.2); Carbon Dioxide 26 mmol/L (22-29); Chloride 88 mmol/L (96-108); Potassium 5.2 mmol/L (3.3-5.1); Sodium 136 mmol/L (135-145)
[2023-11-11 07:20] LABS: Estimated Glomerular Filt Rate 4; Glucose Random 53 mg/dL (60-115)
== END 2023-11-11 06:19 | disposition home or self-care (01) ==
LOC: HO.MMNH3L 06:18
PROVIDERS: Visit Provider Family Medicine
DX: N18.6 End stage renal disease (principal); E11.21 Type 2 diabetes mellitus with diabetic nephropathy; J44.9 Chronic obstructive pulmonary disease, unspecified
CPT/HCPCS: 36415; 80048; 85025